=== PATIENT | female | born 1965 | race Caucasian/White ===

== ENCOUNTER → 2018-09-23 | Outpatient (CLI) | payer BC, OTHER ==
[~2018-09-23] MED LIST: ASPI81CH; CYAN1000; FLUT44OIA; LORA10; NUVIGIL250 MG; VITAMIN D2000 UNIT; ZINC15
[2018-09-24 14:10] LABS: HPV 16 Negative (Negative); HPV 18 Negative (Negative); HPV OTHER HR TYPES Negative (Negative)
[2018-09-24 19:22] LABS: DIAGNOSIS: CommentN
== END | disposition home or self-care (01) ==
LOC: LAB 09:50 → LAB SHORT 09:50
PROVIDERS: Nurse Practitioner Obstetrics & Gynecology
DX: Z01.419 Encounter for gynecological examination (general) (routine) without abnormal findings (principal)
CPT/HCPCS: 87624; G0123

== ENCOUNTER 2023-03-03 06:51 | Day surgery (SDC) | payer BC ==
[~2023-03-03] VITALS: Ht 170.2 cm; Wt 66.3 kg
[~2023-03-03 06:51] MED LIST changes: +ACYCLOVIR15 GM; +DROSPIRENONE-E1 EAC3 PO; +VALACYCLOVIR1000 M1 PO
[2023-03-03] MEDS ORDERED: BEYAZ 28 TABLE1 EACH (07:05)
[2023-03-03 09:09] VITALS: BP 119/75
== END 2023-03-03 09:31 | disposition home or self-care (01) ==
LOC: ORSCSDS 06:51
PROVIDERS: Student in an Organized Health Care Education/Training Program
PROC: 0DBN8ZX Excision of Sigmoid Colon, Via Natural or Artificial Opening Endoscopic, Diagnostic (ICD-10-PCS; principal; 2023-03-03 08:00)
PROC: 0DBK8ZX Excision of Ascending Colon, Via Natural or Artificial Opening Endoscopic, Diagnostic (ICD-10-PCS; principal; 2023-03-03 08:00)
DX: Z12.11 Encounter for screening for malignant neoplasm of colon (principal); Z86.010 Personal history of colon polyps; K63.5 Polyp of colon; K64.8 Other hemorrhoids
CPT/HCPCS: 88305; J2704; J7120